=== PATIENT | female | born 1940 | race Caucasian/White ===

== ENCOUNTER 2018-03-20 06:02 | Observation (INO) | payer BC ==
[2018-03-20] MEDS: ROPIVACAINE 0.5 % 30 ML VIAL
[2018-03-20] MEDS ORDERED: BUPIVACAINE 0.5% (SDV) 30 ML INJ (06:42)
[2018-03-20] MEDS ORDERED: CLINDAMYCIN 900 MG/50 ML D5W IVPB IVPB (07:00)
[2018-03-20] MEDS ORDERED: EPHEDrine SULFATE 50 MG/5 ML SYG (07:00)
[2018-03-20] MEDS ORDERED: ROPIVACAINE 0.5 % 30 ML VIAL (07:22)
[2018-03-20] MEDS ORDERED: PROPOFOL 20 ML (07:22)
[2018-03-20] MEDS ORDERED: MIDAZOLAM 1 MG/ML 2 ML INJ (07:22)
[2018-03-20] MEDS ORDERED: CEFAZOLIN 1 GM INJ (07:22)
[2018-03-20] MEDS ORDERED: ROCURONIUM 50 MG INJ (07:22)
[2018-03-20] MEDS ORDERED: PHENYLephrine (100 MCG/ML) 5ML SYG (08:01)
[2018-03-20] MEDS ORDERED: KETOROLAC 30 MG INJ (08:26)
[2018-03-20] MEDS ORDERED: METOCLOPRAMIDE 10 MG INJ (08:26)
[2018-03-20] MEDS ORDERED: ONDANSETRON 4 MG INJ (08:26)
[2018-03-20] MEDS ORDERED: DEXAMETHASONE 4 MG/ML 5 ML INJ (08:26)
[2018-03-20] MEDS: POLYMYXIN/BACITRACIN 1L IRRIG (09:00)
[2018-03-20] MEDS ORDERED: HETASTARCH 6% NACL 500 ML (09:21)
[2018-03-20] MEDS ORDERED: NEOMYC/POLYMYX/BACIT 30 GM OINT (10:58)
[2018-03-20] MEDS ORDERED: NEOSTIGMINE 3 MG/3 ML SYRINGE (11:08)
[2018-03-20] MEDS ORDERED: GLYCOPYRROLATE 0.4 MG INJ (11:08)
[2018-03-20] MEDS ORDERED: METOCLOPRAMIDE 10 MG INJ IV (11:30)
[2018-03-20] MEDS ORDERED: hydrALAzine 20 MG INJ IV (11:30)
[2018-03-20] MEDS ORDERED: LABETALOL HCL 20MG INJ IV (11:30)
[2018-03-20] MEDS ORDERED: FENTAnyl 50 MCG/ML VIAL IV ×3 (11:30)
[2018-03-20] MEDS ORDERED: DIPHENHYDRAMINE 50 MG INJ IV (11:30)
[2018-03-20] MEDS ORDERED: ONDANSETRON 4 MG INJ IV ×2 (11:30→12:00)
[2018-03-20] MEDS ORDERED: HYDROmorphONE 1 MG/5 ML IV SYRINGE IV ×3 (11:30)
[2018-03-20] MEDS ORDERED: EPHEDrine SULFATE 50 MG/5 ML SYG IV (11:30)
[2018-03-20] MEDS ORDERED: OXYCODONE/ACETAMINOPHEN (5/325) TAB PO ×2 (11:30)
[2018-03-20] MEDS ORDERED: MEPERIDINE 25 MG INJ IV (11:30)
[2018-03-20] MEDS ORDERED: HYDROmorphONE 1 MG/ML SYG IV (12:00)
[2018-03-20] MEDS ORDERED: DIPHENHYDRAMINE 25 MG CAP PO (12:00)
[2018-03-20] MEDS ORDERED: ACETAMINOPHEN 325 MG TAB PO (12:00)
[2018-03-20] MEDS: VANCOMYCIN 500 MG (PMX) 100 ML IVPB (13:50)
[2018-03-20] MEDS: GABAPENTIN 300 MG CAP PO ×2 (14:45→20:53)
[2018-03-20] MEDS: ATORVASTATIN 20 MG TAB PO (20:53)
[2018-03-21] MEDS: VANCOMYCIN 500 MG (PMX) 100 ML IVPB (02:28)
[2018-03-21 05:21] LABS: ADD MAN DIFF? NO
[2018-03-21 05:22] LABS: WHITE BLOOD COUNT 12.4 10^3/ul (4.8-10.8)
[2018-03-21 05:23] LABS: BASOPHILS % 0.1 % (0.0-2.0); HEMATOCRIT 30.6 % (37.0-47.0); HEMOGLOBIN 10.1 g/dl (12.0-16.0); LYMPHOCYTES # 1.2 10^3/ul (0.8-2.9); LYMPHOCYTES % 9.3 % (15.0-51.0); MEAN CORPUSCULAR HEMOGLOBIN 30.2 pg (29.0-33.0); MEAN CORPUSCULAR VOLUME 91.6 fl (82.0-101.0); MEAN PLATELET VOLUME 10.8 fl (7.4-10.4); MONOCYTE # 0.8 10^3/ul (0.3-0.9); MONOCYTES % 6.4 % (0.0-11.0); NEUTROPHIL # 10.4 10^3/ul (1.6-7.5); NEUTROPHILS % 83.6 % (39.0-77.0); PLATELET COUNT 189 10^3/UL (140-415); RED BLOOD COUNT 3.34 10^6/ul (4.20-5.40); RED CELL DISTRIBUTION WIDTH 14.1 % (11.5-14.5)
[2018-03-21 05:46] LABS: ANION GAP 8 (5-13); BLOOD UREA NITROGEN 18 mg/dl (7-20); CARBON DIOXIDE 25 mmol/L (21-31); CHLORIDE 100 mmol/L (97-110); CREATININE 0.89 mg/dl (0.44-1.00); GLUCOSE 139 mg/dl (70-220); POTASSIUM 4.6 mmol/L (3.5-5.1); SODIUM 133 mmol/L (135-144)
[2018-03-21] MEDS: POTASSIUM CHLORIDE (SR) 10 MEQ TAB PO (07:18)
[2018-03-21] MEDS: LOSARTAN 50 MG TAB PO (09:00)
[2018-03-21] MEDS: CHOLECALCIFEROL 1,000 UNIT TAB PO (09:08)
[2018-03-21] MEDS: GABAPENTIN 300 MG CAP PO (09:08)
[2018-03-21] MEDS: FOLIC ACID 1 MG TAB PO (09:08)
[2018-03-21] MEDS ORDERED: GABAPENTIN 100 MG CAP PO (13:30)
[2018-03-21] MEDS ORDERED: ASCORBIC ACID 500 MG TAB.CHEW PO (13:30)
[2018-03-21] MEDS: ASCORBIC ACID 500 MG TAB PO (16:39)
[2018-03-21] MEDS: RIVAROXABAN 10 MG TABLET PO (18:35)
[2018-03-21] MEDS ORDERED: GABAPENTIN 300 MG CAP PO (21:00)
[2018-03-21] MEDS: ATORVASTATIN 20 MG TAB PO (21:09)
[2018-03-21] MEDS: DOCUSATE SODIUM 100 MG CAP PO (21:09)
[2018-03-21] MEDS: oxyCODONE 5 MG TAB PO (22:50)
[2018-03-22] MEDS: DOCUSATE SODIUM 100 MG CAP PO ×2 (08:56→20:30)
[2018-03-22] MEDS: FOLIC ACID 1 MG TAB PO (08:56)
[2018-03-22] MEDS: ASCORBIC ACID 500 MG TAB PO (08:57)
[2018-03-22] MEDS: LOSARTAN 50 MG TAB PO (08:57)
[2018-03-22] MEDS: CHOLECALCIFEROL 1,000 UNIT TAB PO ×2 (08:57→14:06)
[2018-03-22] MEDS: POTASSIUM CHLORIDE (SR) 10 MEQ TAB PO (08:58)
[2018-03-22] MEDS: RIVAROXABAN 10 MG TABLET PO (17:50)
[2018-03-22] MEDS: CEPASTAT LOZENGE MT (20:30)
[2018-03-22] MEDS: oxyCODONE 5 MG TAB PO (20:30)
[2018-03-22] MEDS: ATORVASTATIN 20 MG TAB PO (20:30)
[2018-03-23] MEDS: POTASSIUM CHLORIDE (SR) 10 MEQ TAB PO (06:41)
[2018-03-23] MEDS: DOCUSATE SODIUM 100 MG CAP PO (08:25)
[2018-03-23] MEDS: CHOLECALCIFEROL 1,000 UNIT TAB PO ×2 (08:26→08:57)
[2018-03-23] MEDS: ASCORBIC ACID 500 MG TAB PO (08:27)
[2018-03-23] MEDS: FOLIC ACID 1 MG TAB PO (08:27)
[2018-03-23] MEDS: LOSARTAN 50 MG TAB PO (08:29)
== END 2018-03-23 17:25 | disposition home or self-care (01) ==
LOC: SDS 06:02 → MS1 12:26 → SDS 11:48 → REC 11:49 → MS1 13:25
DX: T84.84XA Pain due to internal orthopedic prosthetic devices, implants and grafts, initial encounter (principal); M20.5X2 Other deformities of toe(s) (acquired), left foot; Y79.1 Therapeutic (nonsurgical) and rehabilitative orthopedic devices associated with adverse incidents; I10 Essential (primary) hypertension; E78.5 Hyperlipidemia, unspecified
CPT/HCPCS: 28313; 73630-LT; 80048; 82306; 85025; 88300; 88304; 92526; 92610; 97116; 97162; 97530